=== PATIENT | female | born 1995 | race African-American/Black ===

== ENCOUNTER 2017-04-08 05:54 | Emergency (ER) | payer MEDICAID ==
[2017-04-08 06:58] LABS: % BASOPHILS 0.9 % (0.0-2.0); % EOSINOPHILS 1.9 % (0.0-5.0); % MONOCYTES 5.4 % (2.0-10.0); % NEUTROPHILS 63.8 % (40.0-80.0); BASOPHILE ABSOLUTE 0.1 Th/cumm (0-0.2); EOSINOPHILE ABSOLUTE 0.1 Th/cmm (0.1-0.4); HEMATOCRIT 39.7 % (41.0-60); HEMOGLOBIN 13.3 gm/dL (12-16); LYMPHOCYTE ABSOLUTE 1.9 Th/cmm (1.5-3.0); MEAN CELL VOLUME 83.3 fl (81-100); MEAN CORPUSCULAR HEMOGLOBIN 27.9 pg (27.0-31.0); MEAN CORPUSCULAR HGB CONC 33.5 pg (28.0-36.0); MEAN PLATELET VOLUME 8.3 fl; MONOCYTE ABSOLUTE 0.4 Th/cmm (0.3-1.0); NEUTROPHILE ABSOLUTE 4.4 Th/cmm (1.8-8.0); RED BLOOD COUNT 4.77 Mil/cmm (3.80-5.10); RED CELL DISTRIBUTION WIDTH 11.9 % (11.5-20.0)
[2017-04-08 07:01] LABS: PLATELET COUNT 317 Th/cmm (150-400); WHITE BLOOD COUNT 6.9 Th/cmm (4.8-10.8)
[2017-04-08 07:02] LABS: INF A SCREEN NEG FOR INF A; INF B SCREEN NEG FOR INF B
[2017-04-08 07:14] LABS: ALB/GLOB RATIO 1.5 (1.0-1.8); ALBUMIN 4.3 gm/dL (3.7-5.3); ALKALINE PHOSPHATASE 70 U/L (34-104); ANION GAP 8.7 (7.0-16.0); BILIRUBIN,TOTAL 0.5 mg/dL (0.3-1.0); BUN - UREA NITROGEN 12 mg/dL (7-25); CALCIUM SERUM 9.7 mg/dL (8.6-10.3); CARBON DIOXIDE 26.9 mEq/L (21.0-31.0); CHLORIDE 104 mEq/L (98-107); CREATININE - SERUM 0.7 mg/dL (0.6-1.2); GFR AFRICAN-AMERICAN > 60.0 ml/min (>90); GFR NON AFRICAN-AMERICAN > 60.0 ml/min; GLUCOSE 134 mg/dL (70-105); MAGNESIUM 2.1 mg/dL (1.9-2.7); POTASSIUM SERUM 4.6 mEq/L (3.5-5.1); SGOT 18 U/L (13-39); SGPT/ALT 23 U/L (7-52); SODIUM SERUM 135 mEq/L (136-145); TOTAL PROTEIN,SERUM 7.1 gm/dL (6.0-8.3)
--- NOTE | 2017-04-08 13:13 | ER Physician Documentation ---
DATE OF SERVICE: 04/08/2017 A 22-year-old female patient, date of her is 1995. She came here on 04/08/2017. The patient has cough, shortness of breath, and sore throat. She almost lost her voice since she has laryngitis. She had little nausea and vomiting for the past 2 weeks. HISTORY OF PRESENT ILLNESS: The patient has these above symptoms for the past 2 weeks and getting worse, it is off and on, going on. REVIEW OF SYSTEMS: EYES: No history of double vision, blurring, blindness, or nystagmus. CENTRAL NERVOUS SYSTEM: No history of TIA, stroke, encephalitis or meningitis. CONSTITUTIONAL: The patient looks weak. She has cough. She has shortness of breath. She has laryngitis. ____. PULMONARY: She has a cough. She brings up some phlegm and there is no definite history of any TB or cancers, etc. in the past. HEART: No history of any heart illnesses. GASTROINTESTINAL: No history of any definite diarrhea, but nausea, vomiting is present. GENITOURINARY: No burning, frequency, or dysuria. Last menstrual period 04/02/2017. Flu vaccination was taken in ____. ALLERGIES: None known. Pain in the throat is 6/10. She has sore throat. She has a history of medical asthma. PHYSICAL EXAMINATION: VITAL SIGNS: Temperature 98.8, pulse 86, respirations 18, blood pressure 136/97, and oxygen saturation 100%. Height 5 feet 7 inches. Weighing 240 pounds. GENERAL: The patient appears to be sick looking. She has sore throat. Her tonsils are slightly enlarged. Throat is congested. NECK: Not distended. Carotids are normal. Normal uplift. Submandibular glands are somewhat enlarged, painful and tender. LUNGS: Appeared to be almost clear with few crackles and occasional rhonchi ____. No bronchial breathing. ABDOMEN: Soft, obese, benign, and negative. CENTRAL NERVOUS SYSTEM: Within normal limits. HEART: Reveals normal heart sounds. No fourth heart sound. Second heart sound physiologically split. Third heart sound is absent. GENITOURINARY: Essentially normal. ENDOCRINE: The patient has no diabetes mellitus. No hyper or hypothyroidism. CLINICAL IMPRESSION: The patient has diagnoses of upper respiratory tract infection, acute laryngitis, acute bronchitis with some degree of nausea and vomiting. The patient will be treated with Rocephin and Zithromax and strep throat has been taken as well as flu vaccination. Culture has been done and depending on the results, will give further treatment. At the present moment, we will give ____ antibiotics. JOB# [id number]
== END 2017-04-08 07:10 | disposition home or self-care (01) ==
LOC: ER 05:54
DX: J06.9 Acute upper respiratory infection, unspecified (principal); J20.9 Acute bronchitis, unspecified; J04.0 Acute laryngitis
CPT/HCPCS: 99284; 96372; 36415; 87804 ×2; 85025; 83735; 80053; J0696; Z7502